=== PATIENT | male | born 1960 | race Two or more races ===

== ENCOUNTER 2017-07-08 11:45 | Outpatient (CLI) | payer OTHER ==
--- NOTE | 2017-07-08 15:04 | XRAY Report ---
THREE VIEW RIGHT KNEE: 07/08/2017 CLINICAL INDICATION: Pain. FINDINGS: AP, lateral, sunrise views of the right knee demonstrate minimal osteoarthritis, with tiny osteophytes. There is no evidence of fracture or dislocation. No effusion is present. IMPRESSION: MINIMAL OSTEOARTHRITIS. TD: 07/08/2017 15:03
== END 2017-07-08 11:46 | disposition home or self-care (01) ==
LOC: DI 11:45
PROVIDERS: ATTEND Family Medicine
DX: M17.11 Unilateral primary osteoarthritis, right knee (principal)